=== PATIENT | female | born 1985 | race Caucasian/White ===

== ENCOUNTER 2019-08-29 02:25 | Observation (INO) | payer MEDICAID, OTHER ==
[2019-08-29] VITALS (17 sets, daily range): BP systolic 97–197; BP diastolic 58–108
[~2019-08-29] VITALS: Ht 160 cm; Wt 136.1 kg
[2019-08-29] MEDS ORDERED: NS IV 1000 ML 1,000 ML IV STA ×2 (03:07→04:22)
--- NOTE | 2019-08-29 03:26 | ED GU-Female ---
General Stated Complaint: VAGINAL BLEEDING Source: patient History of Present Illness Date Seen by Provider: Aug 29, 2019 Time Seen by Provider: 02:34 Initial Comments 33-year-old female presenting with complaints of vaginal bleeding. She is and had her last menstrual period approximately April 26 but it has been irregular and she is not sure of the dates. She states that she has not seen an OB doctor yet. She is scheduled to see a doctor at [facility] but not until next week. She has been spotting for the last 2 weeks. Tonight she started having heavy vaginal bleeding with clots and cramping for the last 30 minutes prior to arrival. She continues to have heavy bleeding on arrival to the emergency department. She is getting lightheaded and dizzy. She denies any fever or chills. She is unsure of her blood type but denies having Rhogam shots with previous pregnancies. She denies any complications with previous pregnancies, other than she had high blood pressure late in and had previous C sections. She does have hypertension but is not taking any medications for it. She also has not been taking any vitamins or any medicines currently. Her previous pregnancies were delivered with a provider in [facility] due to her having high blood pressures in late . 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) : Yes Expected Date of Delivery: January 31, 2020 LMP: Apr 26, 2019 Musculoskeletal: no symptoms reported Skin: no symptoms reported Psychiatric/Neurological: No Symptoms Reported Past Ipvuyrm-Hmdcay-Sigtxq Hx Past Med/Social Hx: Reviewed Nursing Past Med/Soc Hx Patient Social History Recent Foreign Travel: No Contact w/Someone Who Travel: No Past Medical History Surgeries: Yes Section Cardiac: Yes Hypertension Physical Exam Vital Signs Vital Signs - First Documented 08/29/19 02:32 Temp 36.5 Pulse 114 Resp 18 B/P (MAP) 241/165 (190) Pulse Ox 97 O2 Delivery Room Air Capillary Refill : Height, Weight, BMI Height: '" Weight: lbs. oz. kg; BMI Method: General Appearance: WD/WN, moderate distress, obese HEENT: PERRL/EOMI, pharynx normal Neck: non-tender, supple Cardiovascular: normal peripheral pulses, tachycardia Respiratory: chest non-tender, lungs clear, normal breath sounds Gastrointestinal: normal bowel sounds, soft; No rebound; tenderness (suprapubic over the uterus area) Pelvic: vaginal bleeding (large clotted blood present at the introitus from pt having a towel between her legs. once that was removed there was a steady stream of heavy bright red blood and large clots were also removed but the bleeding continued.) Extremities: normal range of motion, non-tender, normal capillary refill Neurologic/Psychiatric: alert, oriented x 3 Progress/Results/Core Measures Suspected Sepsis SIRS Temperature: Pulse: Respiratory Rate: Laboratory Tests 08/29/19 03:30: White Blood Count 11.6H Blood Pressure / Mean: Laboratory Tests 08/29/19 03:30: Creatinine 0.52L, Platelet Count 259, Total Bilirubin 0.2 Results/Orders Lab Results Laboratory Tests Test 08/29/19 03:30 Range/Units White Blood Count 11.6 H 4.3-11.0 10^3/uL Red Blood Count 4.84 4.35-5.85 10^6/uL Hemoglobin 12.8 11.5-16.0 G/DL Hematocrit 39 35-52 % Mean Corpuscular Volume 80 80-99 FL Mean Corpuscular Hemoglobin 26 25-34 PG Mean Corpuscular Hemoglobin Concent 33 32-36 G/DL Red Cell Distribution Width 14.7 H 10.0-14.5 % Platelet Count 259 130-400 10^3/uL Mean Platelet Volume 10.7 H 7.4-10.4 FL Neutrophils (%) (Auto) 71 42-75 % Lymphocytes (%) (Auto) 22 12-44 % Monocytes (%) (Auto) 5 0-12 % Eosinophils (%) (Auto) 1 0-10 % Basophils (%) (Auto) 0 0-10 % Neutrophils # (Auto) 8.3 H 1.8-7.8 X 10^3 Lymphocytes # (Auto) 2.5 1.0-4.0 X 10^3 Monocytes # (Auto) 0.5 0.0-1.0 X 10^3 Eosinophils # (Auto) 0.2 0.0-0.3 10^3/uL Basophils # (Auto) 0.0 0.0-0.1 10^3/uL Sodium Level 138 135-145 MMOL/L Potassium Level 3.6 3.6-5.0 MMOL/L Chloride Level 105 98-107 MMOL/L Carbon Dioxide Level 18 L 21-32 MMOL/L Anion Gap 15 H 5-14 MMOL/L Blood Urea Nitrogen 9 7-18 MG/DL Creatinine 0.52 L 0.60-1.30 MG/DL Estimat Glomerular Filtration Rate > 60 BUN/Creatinine Ratio 17 Glucose Level 139 H 70-105 MG/DL Calcium Level 8.4 L 8.5-10.1 MG/DL Corrected Calcium 8.7 8.5-10.1 MG/DL Total Bilirubin 0.2 0.1-1.0 MG/DL Aspartate Amino Transf (AST/SGOT) 15 5-34 U/L Alanine Aminotransferase (ALT/SGPT) 13 0-55 U/L Alkaline Phosphatase 60 40-136 U/L Total Protein 6.3 L 6.4-8.2 GM/DL Albumin 3.6 3.2-4.5 GM/DL Human Chorionic Gonadotropin, Quant 63885 H <5 MIU/ML My Orders Orders - MARISA HAIRSTON MD Cbc With Automated Diff (08/29/19 03:06) Hcg,Quantitative (08/29/19 03:06) Abo Rh Type (08/29/19 03:06) Ed Iv/Invasive Line Start (08/29/19 03:06) Comprehensive Metabolic Panel (08/29/19 03:06) Ns Iv 1000 Ml (Sodium Chloride 0.9%) (08/29/19 03:07) Ondansetron Injection (Zofran Injectio (08/29/19 04:11) Ondansetron Injection (Zofran Injectio (08/29/19 04:09) Ondansetron Injection (Zofran Injectio (08/29/19 04:15) Lorazepam Injection (Ativan Injection) (08/29/19 04:15) Ns Iv 1000 Ml (Sodium Chloride 0.9%) (08/29/19 04:22) Fentanyl Injection (Sublimaze Injection (08/29/19 04:22) Medications Given in ED Current Medications Medications Dose Ordered Sig/Satya Route Start Time Stop Time Status Last Admin Dose Admin Lorazepam 1 mg ONCE ONCE IVP 08/29/19 04:15 08/29/19 04:16 DC 08/29/19 04:19 1 MG Vital Signs/I&O 08/29/19 08/29/19 02:32 04:36 Temp 36.5 Pulse 114 96 Resp 18 20 B/P (MAP) 241/165 (190) 178/108 Pulse Ox 97 97 O2 Delivery Room Air Room Air Capillary Refill : Progress Note #1: Progress Note Obtain basic labs. Give IVF bolus of NS 1 L. check HCG level and try to reach notary public for emergent consult and transfer for observation and possible D&C Progress Note #2: Progress Note Her initial CBC came back with a hemoglobin of 12.8. Her chemistry panel appear stable without acute significant abnormality. [place] heart rate [place] [address] range but with sitting up or any movement she does open his 120 to 130 range. She is dizzy and lightheaded with movement and standing. I had to make a few phone calls to track down who was on-call for gynecology but once a found out it was Dr. Maldonado's to reach her and discussed the case with her. That point the labs are back so I could discuss that with her as well. She accepted the patient for transfer. She will be a direct admit to the women's services floor. Anticipate a D&C to help control her bleeding. She will evaluate the patient after she is transferred. After speaking with Dr. Maldonado I did clarify from the patient that the reason she was going to [place] to seek care for her pregnancies and deliveries had to do with having elevated blood pressures after the 32nd week of her pregnancies and she had been having sections for delivery. Progress Note #3: Progress Note She did complain of pain and was having anxiety as well prior to transfer so dose of fentanyl 50 mcg was given for pain, a dose of Ativan 1 mg was given for anxiety. She also was given 4 mg Zofran for nausea. A second liter of normal saline was started prior to transfer as well. Critical Care Note Critical Care Total Time (minutes) 60 Progress 60 minutes of critical care time. The time was excluding separately billable procedures. Time was spent in direct care of the patient, obtaining history from the patient, ordering labs and tests and reviewing results, ordering interventions and reviewing response, discussion with consultants, reviewing results with the patient, documentation of the chart. Time was spent in direct care of the patient has she had potential of severe morbidity or mortality due to imminent compromise of her cardiovascular system that required my constant attention to prevent decompensation of the patient. Departure Communication (Admissions) Time/Spoke to Admitting Phy: 04:[address] Maldonado for gynecology at 4:18 AM. She accepted the patient in transfer. As the patient continues to have vaginal bleeding and pelvic pain she likely needs a D&C. Impression Primary Impression: Vaginal bleeding before 22 weeks gestation Additional Impression: Incomplete miscarriage Disposition: ADMITTED INPATIENT Condition: Critical Admissions Decision to Admit Reason: Admit from ER (General) Decision to Admit/Date: Aug 29, 2019 Time/Decision to Admit Time: 04:18 Departure-Patient Inst. Referrals: NO,LOCAL PHYSICIAN (PCP) Primary Care Physician MARISA HAIRSTON MD Aug 29, 2019 03:26
[2019-08-29 03:55] LABS: HEMATOCRIT 39 % (35-52); HEMOGLOBIN 12.8 G/DL (11.5-16.0); MEAN CORPUSCULAR HEMOGLOBIN 26 PG (25-34); WHITE BLOOD COUNT 11.6 10^3/uL (4.3-11.0)
[2019-08-29 03:56] LABS: BASOPHILS % (AUTO) 0 % (0-10); EOSINOPHILS # (AUTO) 0.2 10^3/uL (0.0-0.3); EOSINOPHILS % (AUTO) 1 % (0-10); LYMPHOCYTES # (AUTO) 2.5 X 10^3 (1.0-4.0); LYMPHOCYTES % (AUTO) 22 % (12-44); MEAN CORPUSCULAR HGB CONC 33 G/DL (32-36); MEAN CORPUSCULAR VOLUME 80 FL (80-99); MEAN PLATELET VOLUME 10.7 FL (7.4-10.4); MONOCYTES # (AUTO) 0.5 X 10^3 (0.0-1.0); MONOCYTES % (AUTO) 5 % (0-12); NEUTROPHILS # (AUTO) 8.3 X 10^3 (1.8-7.8); NEUTROPHILS % (AUTO) 71 % (42-75); PLATELET COUNT 259 10^3/uL (130-400); RED CELL DISTRIBUTION WIDTH 14.7 % (10.0-14.5)
[2019-08-29 03:58] LABS: ALKALINE PHOSPHATASE 60 U/L (40-136); BILIRUBIN,TOTAL 0.2 MG/DL (0.1-1.0); BUN/CREATININE RATIO 17; CALCIUM 8.4 MG/DL (8.5-10.1); CARBON DIOXIDE 18 MMOL/L (21-32); CHLORIDE 105 MMOL/L (98-107); CREATININE SERUM 0.52 MG/DL (0.60-1.30); GFR ESTIMATED > 60; GLUCOSE 139 MG/DL (70-105); POTASSIUM 3.6 MMOL/L (3.6-5.0); SODIUM 138 MMOL/L (135-145)
[2019-08-29 03:59] LABS: ALANINE AMINOTRANSFERASE 13 U/L (0-55); ALBUMIN 3.6 GM/DL (3.2-4.5); TOTAL PROTEIN 6.3 GM/DL (6.4-8.2)
[2019-08-29] MEDS ORDERED: ONDANSETRON 4 MG/2 ML (SDV) Z0FRAN ONE ×2 (04:09→07:18)
[2019-08-29] MEDS ORDERED: ONDANSETRON 4 MG/2 ML (SDV) Z0FRAN IVP STA (04:11)
[2019-08-29] MEDS ORDERED: ONDANSETRON 4 MG/2 ML (SDV) Z0FRAN IVP ONE (04:15)
[2019-08-29] MEDS ORDERED: LORazepam INJ 2 MG/ML (ATIVAN) VIAL IVP ONE (04:15)
[2019-08-29] MEDS ORDERED: fentaNYL INJECTION 100 MCG/2 ML AMP IVP STA (04:22)
--- NOTE | 2019-08-29 05:25 | NUR ---
PT ARRIVED VIA AMBULANCE WITH DR SAMS PRESENT, PT MOVED TO BED FOR EVALUATION. ORDERS OBTAINED AND DR SAMS PRESENT TO PERFORM EXAM. PT IV CURRENTLY RUNNING NS ON PRESSURE BAG.
[2019-08-29] MEDS ORDERED: NS IV 500 ML 500 ML IV SCH (05:30)
--- NOTE | 2019-08-29 05:45 | NUR ---
weighted speculum exam by Dr Maldonado, [address] Maldonado and at 0556 Dr Maldonado discussed D and C for removal of product in the uterus. Consent signed and all questions answered. filter press supervisor contacted to call in surgical crew. Pt resting in bed while staff arrives and labs are obtained.
[2019-08-29 05:57] LABS: BASOPHILS % (AUTO) 0 % (0-10); EOSINOPHILS # (AUTO) 0.1 10^3/uL (0.0-0.3); EOSINOPHILS % (AUTO) 1 % (0-10); HEMATOCRIT 37 % (35-52); HEMOGLOBIN 12.3 G/DL (11.5-16.0); LYMPHOCYTES # (AUTO) 1.9 X 10^3 (1.0-4.0); LYMPHOCYTES % (AUTO) 13 % (12-44); MEAN CORPUSCULAR HEMOGLOBIN 26 PG (25-34); MEAN CORPUSCULAR HGB CONC 34 G/DL (32-36); MEAN CORPUSCULAR VOLUME 79 FL (80-99); MEAN PLATELET VOLUME 11.2 FL (7.4-10.4); MONOCYTES # (AUTO) 0.5 X 10^3 (0.0-1.0); MONOCYTES % (AUTO) 4 % (0-12); NEUTROPHILS # (AUTO) 12.6 X 10^3 (1.8-7.8); NEUTROPHILS % (AUTO) 83 % (42-75); PLATELET COUNT 258 10^3/uL (130-400); RED CELL DISTRIBUTION WIDTH 15.2 % (10.0-14.5); WHITE BLOOD COUNT 15.1 10^3/uL (4.3-11.0)
--- NOTE | 2019-08-29 06:07 | History & Physical-Surgical ---
HPO-Surgical History of Present Illness Chief Complaint: asne. Vaginal hemorrhage/ + HCG/ inevitable miscarriage This is a 33 year old at approximately 11-12 weeks gestation who presented to [facility] about 2:45 this am. She had not had any pain, but had abrupt onset of vaginal hemorrhage. She has not had PNC but is to start on Saturday at [facility]. Previous /delivery at [facility] with Dr. Escobar. She has hgb of 12 and Hcg of 15,000 at [facility]. No US done yet as no US available. No T&S done because not available at [facility] but she reports never needing a Rhogam injection. She reports passing multiple clots at [facility] but the bleeding had slowed. ED doc states he removed several clots from the vagina but he was unable to see the cervix adequately. She reports never having been hypertensive, or at least not treated between pregnancies, but she had to be on medications about 32 weeks with each of her pregnancies. She is not currently on any meds. she does not have a primary care physician and Dr. Escobar has retired. she was to have first visit at [facility] on Saturday. Going there because of previous history of CS and BP issues with the previous pregnancies. She had first CS due to heart rate abnormalities. she was in labor for over 40 hours and had not delivered. then was having heart rate decelerations. She then had planned to have TOLAC but she had not delivered by 40 weeks so CS done. Last was attempted TOLAC, but "baby got wrapped in cord" so repeat CS. Last oral intake approximately 8:30 pm. While this was not planned, it was very wanted. she wanted to confirm no hearttones. In addition, wishes to take tissue with her to [place] at home. Diagnosis/Surgical Indication: Miscarriage Procedure: Dilation and curettage she also consents to blood transfusion as needed. Date of Surgery: Aug 29, 2019 Weight (Pounds): 300 Height (Feet): 5 Height (Inches): 3 Allergies and Home Medications Allergies Coded Allergies: No Known Drug Allergies (Unverified , 08/29/19) Patient Home Medication List Home Medication List Reviewed: Yes Past Ojlmltn-Zhepbc-Adgsbu Hx Patient Social History Marrital Status: Number of Children: 3 Number of living children: 3 Alcohol Use: Denies Use Recreational Drug Use: No Smoking Status: Never a Smoker 2nd Hand Smoke Exposure: No Recent Foreign Travel: No Contact w/other who traveled: No Recent Hopitalizations: No Recent Infectious Disease Expo: No Surgeries Yes Section Respiratory No Cardiovascular Yes Hypertension (reports no treatment for hypertension outside of . Has had to be on medications for elevated BP after approximately 32 weeks. she may have had preeclampsia with her first but she states no proteinuria. ) Reproductive System Expected Date of Delivery: January 31, 2020 Last Menstrual Period: Apr 26, 2019 Hx : 4 Hx Para: 3 Hx Total # of Abortions (Spona: 0 Hx Reproductive Disorders: No Sexually Transmitted Disease: No HIV/AIDS: No Female Reproductive Disorders: Denies Genitourinary No Gastrointestinal No Musculoskeletal No Endocrine History of Endocrine Disorders: No HEENT History of HEENT Disorders: No Cancer No Psychosocial History of Psychiatric Problem: No Integumentary History of Skin or Integumenta: No Blood Transfusions History of Blood Disorders: No Family Medical History Significant Family History: No Pertinent Family Hx Exam Vital Signs Vital Signs 08/29/19 08/29/19 02:32 04:36 Temp 36.5 Pulse 96 Resp 20 B/P (MAP) 178/108 Pulse Ox 97 O2 Delivery Room Air Capillary Refill : Less Than 3 Seconds Labs Laboratory Tests Test 08/29/19 03:30 08/29/19 05:40 Range/Units White Blood Count 11.6 H 4.3-11.0 10^3/uL Red Blood Count 4.84 4.35-5.85 10^6/uL Hemoglobin 12.8 11.5-16.0 G/DL Hematocrit 39 35-52 % Mean Corpuscular Volume 80 80-99 FL Mean Corpuscular Hemoglobin 26 25-34 PG Mean Corpuscular Hemoglobin Concent 33 32-36 G/DL Red Cell Distribution Width 14.7 H 10.0-14.5 % Platelet Count 259 130-400 10^3/uL Mean Platelet Volume 10.7 H 7.4-10.4 FL Neutrophils (%) (Auto) 71 42-75 % Lymphocytes (%) (Auto) 22 12-44 % Monocytes (%) (Auto) 5 0-12 % Eosinophils (%) (Auto) 1 0-10 % Basophils (%) (Auto) 0 0-10 % Neutrophils # (Auto) 8.3 H 1.8-7.8 X 10^3 Lymphocytes # (Auto) 2.5 1.0-4.0 X 10^3 Monocytes # (Auto) 0.5 0.0-1.0 X 10^3 Eosinophils # (Auto) 0.2 0.0-0.3 10^3/uL Basophils # (Auto) 0.0 0.0-0.1 10^3/uL Sodium Level 138 135-145 MMOL/L Potassium Level 3.6 3.6-5.0 MMOL/L Chloride Level 105 98-107 MMOL/L Carbon Dioxide Level 18 L 21-32 MMOL/L Anion Gap 15 H 5-14 MMOL/L Blood Urea Nitrogen 9 7-18 MG/DL Creatinine 0.52 L 0.60-1.30 MG/DL Estimat Glomerular Filtration Rate > 60 BUN/Creatinine Ratio 17 Glucose Level 139 H 70-105 MG/DL Calcium Level 8.4 L 8.5-10.1 MG/DL Corrected Calcium 8.7 8.5-10.1 MG/DL Total Bilirubin 0.2 0.1-1.0 MG/DL Aspartate Amino Transf (AST/SGOT) 15 5-34 U/L Alanine Aminotransferase (ALT/SGPT) 13 0-55 U/L Alkaline Phosphatase 60 40-136 U/L Total Protein 6.3 L 6.4-8.2 GM/DL Albumin 3.6 3.2-4.5 GM/DL Human Chorionic Gonadotropin, Quant 03277 H <5 MIU/ML General Appearance: Alert, Oriented X3, Moderate Distress Respiratory: Clear to Auscultation Cardiovascular: Regular Rate, Normal S1, Normal S2 Abdominal: Other (bedside US done. There is POC in the uterus. Unable to determine gestational age but suspect early (6 weeks?). No heart heart beat or movement. There are large clots on the perineum and blood on the feet. These were cleaned off the perineum and then a speculum was placed. There was a very large clot (approx 200 ml) removed from the cervix. The cervix could not be adequately visualized, but it is palpated and is 1 cm dilated but completely effaced with what feels to be a large clot vs tissue behind the cervix. She is not actively bleeding at this time. ) Assessment/Plan Assessment and Plan 1. Inevitable miscarriage 2. vaginal hemorrhage 3. hypertension Plan - Suction dilation and curettage. There are no hearttones seen. However, regardless of status, the cervix is dilated and effaced and she is unstable. BP initially was 178/124, with pulse of 90 but increased to 120 with rising to the bathroom. Hgb initially 12 with Hcg of 15,000 Risks associated with procedure include but not limited to - bleeding, infection, injury to bowel, bladder and ureter. She may require transfusion and she has consented to this. [facility] labs are wnl. In addition, she wishes to take tissue with her once it has been released from the pathologist. Consents signed. Will do prophylactic antibiotics (Ancef and Flagyl) and SCDs. she is not a candidate for medical prophylaxis due to acute hemorrhage. May dc after surgery if blood pressures are stable with follow up with a new PCP. Or may consult in house owner oral surgeon prior to discharge. Admission Diagnosis Admission Status: TROY Presley DO Aug 29, 2019 06:07
[2019-08-29] MEDS ORDERED: ceFAZolin 2 GM/50 ML NS 50 ML ONE (06:14)
[2019-08-29] MEDS ORDERED: metroNIDAZOLE 500MG/100ML IVPB 100 ML ONE (06:14)
[2019-08-29] MEDS ORDERED: TRANEXAMIC ACID INJECTION 1,000 MG in NS (IVPB) 100 ML IV ONE (06:30)
[2019-08-29] MEDS ORDERED: SUCCINYLCHOLINE INJ 100 MG/5 ML SYR ONE (06:46)
[2019-08-29] MEDS ORDERED: MIDAZOLAM 2 MG/2 ML (VERSED) VIAL ONE ×2 (06:51→07:03)
[2019-08-29] MEDS ORDERED: fentaNYL INJECTION 100 MCG/2 ML AMP ONE (06:51)
[2019-08-29] MEDS ORDERED: SEVOFLURANE (ULTANE) 15 ML INHAL SOLN ONE (07:18)
[2019-08-29] MEDS ORDERED: TRANEXAMIC ACID 100 MG/ML 10 ML INJECTION IV ONE (07:18)
[2019-08-29] MEDS ORDERED: LIDOCAINE PF 2% 5 ML (XYLOCAINE) VIAL ONE (07:18)
[2019-08-29] MEDS ORDERED: proPOfol 200 MG/20 ML (DIPRIVAN) VIAL IV ONE (07:18)
[2019-08-29] MEDS ORDERED: KETOROLAC 30 MG/ML VIAL IVP ONE (07:30)
[2019-08-29] MEDS ORDERED: ACETAMINOPHEN 500 MG TAB (TYLENOL) PO PRN (07:30)
--- NOTE | 2019-08-29 07:38 | Operative Report ---
Operative Report Date of Procedure/Surgery Aug 29, 2019 Surgeon (s) TROY SAMS DO Amf Mechanic (s): NA Post-Operative Diagnosis inevitable Miscarriage, vaginal hemorrhage Procedure Performed suction dilation and curettage Description of Procedure Anesthesia Type: General Estimated blood loss (mL): 300 Specimen(s) collected/removed moderated amounts of Products of conception Description of the Procedure with informed consent the patient was taken to the operating room where general anesthesia was found to be adequate. She was prepped and draped in the usual sterile fashion in the dorsolithotomy position. The bladder was drained of 50 ml of clear yellow urine. She did not have new clotted blood on the perineum. A speculum was placed in the vagina and the cervix was noted to be 2 cm dilated with clots and products of conception protruding from the cervical os. I then placed a sharp, single toothed tenaculum on the anterior lip of the cervix. The material in the cervix was grasped with a ring forceps and removed. I then inserted the ring forceps into the cervical os and proceeded to remove a moderate amount of products of conception (at least 200 ml). There was clotted blood but no active bleeding. I then proceeded with a suction dilation and curettage. I removed more products of conception and blood products/clots. I followed this with a sharp curette until a gritty texture was heard. And then followed with a final suction. there was minimal return at this time. There was minimal to no bleeding. The tenaculum was removed from the anterior lip of the cervix. I then removed the instruments from the vagina. Blood pressure prior to the procedure [id number] and during the procedure was 108/82. She did not have excessive blood loss, so the blood transfusion will be held at this time. Will do an H/H in the recovery room. She is awakened and taken to recovery in stable condition. Sponge, lap, needle and instrument counts were correct times. two. She will be admitted for post surgical observation and then will be discharged to home. Efrain mendoza, I may get a medical consult for blood pressure management prior to discharge if her blood pressures remain elevated. Findings of the Procedure moderate amounts of products of conception, appeared necrotic and macerated. No obvious evidence of parts noted. This suggests early miscarriage rather than 12 weeks as patient suspected. Allergies and Home Medications Allergies Coded Allergies: No Known Drug Allergies (Unverified , 08/29/19) Patient Home Medication List Home Medication List Reviewed: Yes TROY SAMS DO Aug 29, 2019 07:38
[2019-08-29] MEDS ORDERED: LACTATED RINGERS 1,000 ML IV PRN (07:42)
[2019-08-29] MEDS ORDERED: OXC5T PO (07:45)
[2019-08-29] MEDS ORDERED: LABE200T7 PO (07:45)
[2019-08-29] MEDS ORDERED: ONDANSETRON 4 MG/2 ML (SDV) Z0FRAN IVP PRN (07:45)
[2019-08-29] MEDS ORDERED: ACET-93 PO (07:45)
[2019-08-29] MEDS ORDERED: morphine INJ 10 MG/ML 1ML (SYR OR VIAL) IVP ONE (07:45)
[2019-08-29] MEDS ORDERED: IBUP-1773 PO (07:45)
[2019-08-29] MEDS ORDERED: fentaNYL INJECTION 100 MCG/2 ML AMP IVP ONE (07:45)
[2019-08-29] MEDS ORDERED: MEPERIDINE (DEMEROL) INJ 50 MG/ML IVP ONE (07:45)
[2019-08-29] MEDS ORDERED: LACTATED RINGERS 1,000 ML IV SCH (07:45)
[2019-08-29] MEDS ORDERED: FERR-84 PO (07:46)
--- NOTE | 2019-08-29 07:49 | Discharge Inst-Women's Service ---
Discharge Inst-Women's Serv Depart Medication/Instructions New, Converted or Re-Newed RX: RX on Chart Instructions expect light vaginal bleeding or spotting up to 7-10 days. If passing large clots, or soaking more than 1 pad per hour for 2 hours or more, then call the office for follow up. Also monitor blood pressures. Bring a log to your follow up appointment. Take your blood pressure randomly during the day or if you feel lightheaded, or have a headache, or are just concerned with your blood pressure. Final Diagnosis vaginal hemorrhage inevitable miscarriage hypertension, etiology unknown Problems Reviewed?: Yes Consults/Follow Up Additional Follow Up: Yes ([address] sams's office. call for appointment [phone]) Activity Activity: Activity as Tolerated Driving Instructions: No Driving for 24 Hours NO SMOKING: NO SMOKING Nothing Inside Vagina: No Douching, No [place], No Tampons Diet Discharge Diet: No Restrictions Symptoms to Report to : Swelling Increased, Bleeding Excessive, Pain Increased, Fever Over 101 Degrees F, Vaginal Bleeding Increase, Cramps in Feet or Legs, Vaginal Discharge Foul For Any Problems or Questions: Contact Your Physician, Go to Emergency Room TROY SAMS DO Aug 29, 2019 07:49
[2019-08-29] MEDS ORDERED: BLOO-729 MC (07:55)
[2019-08-29 08:31] LABS: HEMOGLOBIN 11.3 G/DL (11.5-16.0)
--- NOTE | 2019-08-29 08:40 | NUR ---
MAY ASHA admitted to room 3306-1, with an admitting diagnosis of D&C, on 08/29/19 from [place] via , accompanied by .MAY BARRY introduced to surroundings, call light, bed controls, phone, TV, temperature control, lights, meal times, smoking policy, visitor policy, side rail policy, bathrooms and showers. Patient Rights given to patient in the handbook.MAY BARRY verbalizes understanding that [facility] is not responsible for the loss or damage to any personal effects or valuables that are kept in the patients posession during their hospitalization. The following Patient Care Plans were discussed with the : Discharge Planning, ,, and . MAY BARRY verbalizes understanding of Interdisciplinary Patient Education. Patient and/or family were informed about the Rapid Response Team and its purpose.
[2019-08-29] MEDS ORDERED: LABETALOL 200 MG (NORMODYNE) TAB PO SCH (09:00)
--- NOTE | 2019-08-29 09:00 | NUR ---
INITIAL ASSESSMENT COMPLETED, SEE INTERVENTIONS FOR DETAILED ASSESSMENTS, PLAN OF CARE DISCUSSED WITH PT AND S/O NO QUESTIONS NOTED. LIGHT LOCHIA NOTED, FUNDUS FIRM, PT DENIES PAIN. S/O AT SIDE.
--- NOTE | 2019-08-29 09:30 | NUR ---
RELEASE OF TISSUES SIGNED AND SENT TO LAB, PT TO ASSOCIATE ACCOUNTANT REMAINS Saturday.
--- NOTE | 2019-08-29 11:25 | NUR ---
MARISOL-CARE COMPLETED, PAD CHANGED AND WEIGHED.
--- NOTE | 2019-08-29 11:45 | NUR ---
DR MOREL NEW ORDERS RECEIVED.
--- NOTE | 2019-08-29 11:47 | Progress Note ---
Progress Note Assessment/Plan Date Seen by Provider: Aug 29, 2019 Time Seen by Provider: 11:45 Events since last exam BP prior to labetalol 154/101 Then BP have been much better with BP medications. Her Hgb was 11.3 after surgery Laboratory Tests Test 08/29/19 03:30 08/29/19 05:40 08/29/19 08:20 Range/Units White Blood Count 11.6 H 15.1 H 4.3-11.0 10^3/uL Red Blood Count 4.84 4.66 4.35-5.85 10^6/uL Hemoglobin 12.8 12.3 11.3 L 11.5-16.0 G/DL Hematocrit 39 37 34 L 35-52 % Mean Corpuscular Volume 80 79 L 80-99 FL Mean Corpuscular Hemoglobin 26 26 25-34 PG Mean Corpuscular Hemoglobin Concent 33 34 32-36 G/DL Red Cell Distribution Width 14.7 H 15.2 H 10.0-14.5 % Platelet Count 259 258 130-400 10^3/uL Mean Platelet Volume 10.7 H 11.2 H 7.4-10.4 FL Neutrophils (%) (Auto) 71 83 H 42-75 % Lymphocytes (%) (Auto) 22 13 12-44 % Monocytes (%) (Auto) 5 4 0-12 % Eosinophils (%) (Auto) 1 1 0-10 % Basophils (%) (Auto) 0 0 0-10 % Neutrophils # (Auto) 8.3 H 12.6 H 1.8-7.8 X 10^3 Lymphocytes # (Auto) 2.5 1.9 1.0-4.0 X 10^3 Monocytes # (Auto) 0.5 0.5 0.0-1.0 X 10^3 Eosinophils # (Auto) 0.2 0.1 0.0-0.3 10^3/uL Basophils # (Auto) 0.0 0.0 0.0-0.1 10^3/uL Sodium Level 138 135-145 MMOL/L Potassium Level 3.6 3.6-5.0 MMOL/L Chloride Level 105 98-107 MMOL/L Carbon Dioxide Level 18 L 21-32 MMOL/L Anion Gap 15 H 5-14 MMOL/L Blood Urea Nitrogen 9 7-18 MG/DL Creatinine 0.52 L 0.60-1.30 MG/DL Estimat Glomerular Filtration Rate > 60 BUN/Creatinine Ratio 17 Glucose Level 139 H 70-105 MG/DL Calcium Level 8.4 L 8.5-10.1 MG/DL Corrected Calcium 8.7 8.5-10.1 MG/DL Total Bilirubin 0.2 0.1-1.0 MG/DL Aspartate Amino Transf (AST/SGOT) 15 5-34 U/L Alanine Aminotransferase (ALT/SGPT) 13 0-55 U/L Alkaline Phosphatase 60 40-136 U/L Total Protein 6.3 L 6.4-8.2 GM/DL Albumin 3.6 3.2-4.5 GM/DL Human Chorionic Gonadotropin, Quant [id number] H <5 MIU/ML Will plan discharge with follow up next week. Assessment/Plan s/p Dilation and curettage for inevitable SAB Vaginal hemorrhage hypertension Plan dc home. start labetalol. consider referral to Dr. Vincent for PCP and hypertensive treatment. says that they are likely moving to [place] in a few months. I recommended evaluation for hypertension so that she has improvement in her blood pressure control prior to having another Vitals Last set of Vitals Signs Vital Signs Date Time Temp Pulse Resp B/P (MAP) Pulse Ox O2 Delivery O2 Flow Rate FiO2 08/29/19 08:30 Room Air 08/29/19 08:30 36.7 20 146/97 (113) 99 08/29/19 08:10 1 08/29/19 06:26 100 Labs Laboratory Tests 08/29/19 03:30: White Blood Count 11.6H, Red Blood Count 4.84, Hemoglobin 12.8, Hematocrit 39, Mean Corpuscular Volume 80, Mean Corpuscular Hemoglobin 26, Mean Corpuscular Hemoglobin Concent 33, Red Cell Distribution Width 14.7H, Platelet Count 259, Mean Platelet Volume 10.7H, Neutrophils (%) (Auto) 71, Lymphocytes (%) (Auto) 22, Monocytes (%) (Auto) 5, Eosinophils (%) (Auto) 1, Basophils (%) (Auto) 0, Neutrophils # (Auto) 8.3H, Lymphocytes # (Auto) 2.5, Monocytes # (Auto) 0.5, Eosinophils # (Auto) 0.2, Basophils # (Auto) 0.0, Sodium Level 138, Potassium Level 3.6, Chloride Level 105, Carbon Dioxide Level 18L, Anion Gap 15H, Blood Urea Nitrogen 9, Creatinine 0.52L, Estimat Glomerular Filtration Rate > 60, BUN/Creatinine Ratio 17, Glucose Level 139H, Calcium Level 8.4L, Corrected Calcium 8.7, Total Bilirubin 0.2, Aspartate Amino Transf (AST/SGOT) 15, Alanine Aminotransferase (ALT/SGPT) 13, Alkaline Phosphatase 60, Total Protein 6.3L, Albumin 3.6, Human Chorionic Gonadotropin, Quant [id number] 08/29/19 05:40: White Blood Count 15.1H, Red Blood Count 4.66, Hemoglobin 12.3, Hematocrit 37, Mean Corpuscular Volume 79L, Mean Corpuscular Hemoglobin 26, Mean Corpuscular Hemoglobin Concent 34, Red Cell Distribution Width 15.2H, Platelet Count 258, Mean Platelet Volume 11.2H, Neutrophils (%) (Auto) 83H, Lymphocytes (%) (Auto) 13, Monocytes (%) (Auto) 4, Eosinophils (%) (Auto) 1, Basophils (%) (Auto) 0, Neutrophils # (Auto) 12.6H, Lymphocytes # (Auto) 1.9, Monocytes # (Auto) 0.5, Eosinophils # (Auto) 0.1, Basophils # (Auto) 0.0 08/29/19 08:20: Hemoglobin 11.3L, Hematocrit 34L Clinical Quality Measures Admission Status Admission Dx 1. Inevitable miscarriage 2. vaginal hemorrhage 3. hypertension Plan - Suction dilation and curettage. There are no hearttones seen. However, regardless of status, the cervix is dilated and effaced and she is unstable. BP initially was 178/124, with pulse of 90 but increased to 120 with rising to the bathroom. Hgb initially 12 with Hcg of 15,000 Risks associated with procedure include but not limited to - bleeding, infection, injury to bowel, bladder and ureter. She may require transfusion and she has consented to this. [facility] labs are wnl. In addition, she wishes to take tissue with her once it has been released from the pathologist. Consents signed. Will do prophylactic antibiotics (Ancef and Flagyl) and SCDs. she is not a candidate for medical prophylaxis due to acute hemorrhage. May dc after surgery if blood pressures are stable with follow up with a new PCP. Or may consult in house process improvement consultant prior to discharge. DVT/VTE Risk/Contraindication: Risk Factor Score Per Nursin RFS Level Per Nursing on Admit: 2=Moderate TROY SAMS DO Aug 29, 2019 11:47
[2019-08-29] MEDS ORDERED: KETOROLAC 30 MG/ML VIAL IVP SCH (13:30)
--- NOTE | 2019-08-29 13:45 | NUR ---
IV DC'D, MARISOL-CARE COMPLETED PAD WEIGHED, PT UP TO SHOWER WITH ASSIST, S/O AT SIDE,
--- NOTE | 2019-08-29 15:05 | NUR ---
DISCHARGE INSTRUCTIONS EXPLAINED TO PT/SO, NO QUESTIONS NOTED, PT VERBALIZES UNDERSTANDING OF FOLLOW UP CARE AND INSTRUCTIONS.
--- NOTE | 2019-08-29 15:15 | NUR ---
PT DISCHARGED TO HOME, AMBULATED TO PRIVATE CARE WITH S/O AND STAFF AT SIDE, WILL FOLLOW UP WITH DR SAMS IN ONE WEEK.
--- NOTE | 2019-08-30 09:36 | Anesthesia-General Post-Op ---
General Patient Condition Mental Status/LOC: Same as Preop Cardiovascular: Satisfactory Nausea/Vomiting: Absent Respiratory: Satisfactory Pain: Controlled Complications: Absent Post Op Complications Complications None Follow Up Care/Instructions Patient Instructions None needed. Anesthesia/Patient Condition Patient Condition Patient is doing well, no complaints, stable vital signs, no apparent adverse anesthesia problems. No complications reported per nursing. ANDREZ HI CRNA Aug 30, 2019 09:36
== END 2019-08-29 15:15 | disposition home or self-care (01) ==
LOC: ER FS 02:30 → LDRP 04:18 → WS 08:50
PROVIDERS: ADMIT Obstetrics & Gynecology; ATTEND Obstetrics & Gynecology
DX: O03.4 Incomplete spontaneous abortion without complication (principal); O46.92 Antepartum hemorrhage, unspecified, second trimester; O16.1 Unspecified maternal hypertension, first trimester
CPT/HCPCS: 36415; 80053; 84702; 85014; 85018; 85025; 86850; 86900; 86901; 86920; 96361; 96374; 96375